=== PATIENT | male | born 1930 | race Caucasian/White ===

== ENCOUNTER → 2016-08-15 09:41 | Outpatient (CLI) | payer MEDICARE, BC ==
[~2016-08-15] VITALS: Ht 175.3 cm; Wt 72.7 kg
--- NOTE | ~2016-08-15 | HEMODYNAMI ---
PATIENT:MICHAEL SENA MEDICAL RECORD: [id number] : 28 LOCATION:[facility] ADMISSION DATE: 08/15/16 Generatedon:08/15/201612:47 Patient name: MICHAEL SNEA Patient #: [id number] SSN: [id number] : 1930 Date of study: 08/15/2016 Page: Of Hemodynamic Procedure Report Patient Data Patient Demographics Procedure consent was obtained First Name: MICHAEL Gender: Male Last Name: NATHEN : 1930 [facility] Initial: MORENA Age: 86 year(s) Patient #: [id number] Race: SSN: [id number] Additional ID: [id number] Contact details Address: [address] [place] [address] State: [place] City: [place] Zip code: [address] Past Medical History Allergies Allergen Reaction Date Comments Reported Other allergy 08/15/2016 Valium, Lisinopril, Amlodipine, Hydralazine Admission Admission Data Admission Date: 08/15/2016 Admission Time: 9:41 Arrival Date: 08/15/2016 Arrival Time: 11:30 Admit Source: Other Insurance Payor: Medicare Lab Results Lab Result Date: 08/15/2016 Lab Result Time: 0:00 Biochemistry Name Units Result Min Max BUN mg/dl 20 --(----)*- 7 18 Creatinine mg/dl 0.8 --(-*--)-- 0.6 1.3 CBC Name Units Result Min Max Hemoglobin g/dl 13 -*(----)-- 13.5 17.5 Procedure Procedure Types Cath Procedure Diagnostic Procedure [facility] w/Coronaries Procedure Description Procedure Date Procedure Date: 08/15/2016 Procedure Start Time: 12:30 Procedure Staff Name Function Karmen Lee RT Monitor Romel Roberts MD Performing Physician Gaviota Stock RN Nurse Catherine Crenshaw RT Scrub Indication Angina Procedure Data Cath Procedure Fluoroscopy Diagnostic fluoroscopy Total fluoroscopy Time: 2.9 time: 2.9 min min Diagnostic fluoroscopy Total fluoroscopy dose: dose: 235.31 mGy 235.31 mGy Contrast Material Contrast Material Type Amount (ml) Isovue 370 72 Entry Location Entry Primary Successful Side Size Upsize Upsize Entry Closure Luciano ccessful Closure Location (Fr) 1 (Fr) 2 (Fr) Remarks Device Remarks Radial Right 6 Fr Mechanical artery Short Compression Estimated blood loss: 5 ml Diagnostic catheters Device Type Used For End Catheter Placement Terumo 5Fr Ramy 110cm Multi-vessel catheter Angiography Cordis Infinity 5Fr AR 2 Right Coronary MOD catheter Angiography Procedure Complications No complications Procedure Medications Medication Administration Route Dosage Oxygen NC 2 l/min Heparin Flush Bag added to field 2 bags (1000units/500ml NS) Lidocaine 2% added to field 20 Benadryl I.V. 50 mg Radial Cocktail added to field 1 syringe (Verapomil 2mg/Nitro 400mcg/Heparin 1500units) Refer to Anesthesia Notes for Sedation Medications Hemodynamics Rest HGB: 13 (g/dl) Heart Rate: 71 (bpm) Pressure Samples Time Site Value (mmHg) Purpose Heart Use Rate(bpm) 12:32 LV 93/34,50 Snapshot 71 Snapshots Pre Cath Intra NCS Post Cath Vital Signs Time Heart Resp SPO2 NIBP (mmHg) Rhythm Pain Sedation Rate (ipm) (%) Status Level (bpm) 12:22:21 102 17 99 169/95(136) NSR 0 (11) 10(A) , No pain 12:26:36 68 25 92 135/81(108) NSR 0 (11) 10(A) , No pain 12:30:47 66 17 94 120/67(93) NSR 0 (11) 6(A) , No pain 12:34:59 65 22 93 100/49(79) NSR 0 (11) 6(A) , No pain 12:39:13 63 22 95 100/50(79) NSR 0 (11) 6(A) , No pain 12:44:06 66 22 96 113/53(87) NSR 0 (11) 9(A) , No pain Medications Time Medication Route Dose Verified Delivered Reason Notes Eff ectiveness by by 12:25:19 Oxygen NC 2 l/min Romel Stock RN physician 12:25:31 Heparin Flush added 2 bags Romel Urena used for Bag to Alejandra Roberts MD procedure (1000units/500ml field NS) 12:25:38 Lidocaine 2% added 20ml Romel Urena used for to vial Alejandra Roberts MD procedure field 12:25:44 Benadryl I.V. 50 mg Romel Haecca Per Alejandra Stock RN physician 12:26:06 Radial Cocktail added 1 Romel Romel used for (Verapomil to syringe Alejandra Roberts MD procedure 2mg/Nitro field 400mcg/Hepari 12:29:33 Refer to Romel Urena used for Anesthesia Notes Alejandra Roberts MD procedure for Sedation Medications Procedure Log Time Note 11:45:14 Gaviota Stock RN sent for patient. Start room use. 12:03:18 Informed consent obtained and on chart 12:03:22 Diagnostic Cath Status : Elective 12:04:10 Indication : Angina 12:04:24 Time tracking: Regular hours 12:04:29 Plan of Care:Hemodynamics will remain stable., Cardiac rhythm will remain stable., Comfort level will be maintained., Respiratory function will remain adequate., Patient/ family verbilizes understanding of procedure., Procedure tolerated without complication., Recovers from procedure without complications.. 12:04:34 Patient received from Outpatients to CCL 2 Alert and oriented. Tansferred to table in Supine position. 12:04:39 Warm blankets applied, and devyn hugger turned on for patient comfort. 12:04:40 Correct patient and procedure confirmed by team. 12:04:42 ECG and BP/O2 sat monitors applied to patient. 12:09:17 Dr. Turner present and monitoring patient for TIVA. 12:10:50 Lab Result : Hemoglobin 13 g/dl 12:10:50 Lab Result : Creatinine 0.8 mg/dl 12:10:50 Lab Result : BUN 20 mg/dl 12:21:07 Vital chart was started 12:21:08 Baseline sample Acquired. 12:21:45 Rhythm: paced 12:21:47 Full Disclosure recording started 12:21:55 H&P Date Dictated: 08/14/2016 Within 30 days and on chart., H&P Addendum completed by physician on day of procedure. (MUST COMPLETE FOR ALL OUTPATIENTS). 12:21:56 Pre-procedure instructions explained to patient. 12:21:57 Pre-op teaching completed and patient verbalized understanding. 12:21:58 Family in waiting room. 12:22:00 Patient NPO since Midnight. 12:22:47 Patient allergic to Other allergy Valium, Lisinopril, Amlodipine, Hydralazine 12:22:50 Is the patient allergic to Iodine/contrast media? No. 12:23:09 Is patient on blood thinner?Yes 12:23:12 ACC The patient was administered the following blood thiners within the last 24 hours: ACCPlavix 12:23:16 Patient diabetic? No. 12:23:19 Previous problem with sedation/anesthesia? No ? 12:23:21 Snore? Yes 12:23:41 Sleep apnea? No 12:23:43 Opens mouth fully? Yes 12:23:43 Deviated septum? No 12:23:44 Sticks out tongue? Yes 12:23:46 Airway obstruction? No ? 12:23:50 Dentures? No ? 12:23:52 Pre procedure: right dorsailis pedis pulse 1+ Palpable, but thready & weak; easily obliterated 12:23:58 Patient pain scale 0/10 ?. 12:24:00 Modified Truong's test Ulnar < 7 seconds 12:24:04 IV patent on arrival in left forearm with 0.9% NaCl at [facility]. 12:24:07 Lab results completed and on chart. 12:24:10 Right Radial & Right Groin area was prepped with chlora-prep and draped in sterile fashion 12:24:11 Sharps counted by scrub and verified by R.N. 12:24:11 Alarms reviewed by R. N. 12:25:19 Oxygen 2 l/min NC was given by Gaviota Stock RN; Per physician; 12:25:31 Heparin Flush Bag (1000units/500ml NS) 2 bags added to field was given by Romel Roberts MD; used for procedure; 12:25:38 Lidocaine 2% 20ml vial added to field was given by Romel Roberts MD; used for procedure; 12:25:44 Benadryl 50 mg I.V. was given by Gaviota Stock RN; Per physician; 12:26:06 Radial Cocktail (Verapomil 2mg/Nitro 400mcg/Heparin 1500units) 1 syringe added to field was given by Romel Roberts MD; used for procedure; 12::51 Physician arrived 12::52 --------ALL STOP TIME OUT------ 12::53 Final Timeout: patient, procedure, and site verified with staff and physician. All members of the team are in agreement. 12:28:58 Right Radial & Right Groin site verified by team. 12:29:01 Physical assessment completed. ASA score P 2 - A patient with mild systemic disease as per Romel Roberts MD. 12:29:04 Sedation plan: IV Moderate Sedation Versed, Fentanyl 12:29:33 Refer to Anesthesia Notes for Sedation Medications was given by Romel Roberts MD; used for procedure; 12:30:03 Procedure started. 12:30:11 Local anesthetic to right radial artery with Lidocaine 2% by Romel Roberts MD.INITIAL ACCESS ONLY 12:31:08 A 6 Fr Short sheath was inserted into the Right Radial artery 12:31:21 Use device set Radial Dx 12:31:23 Cardinal Cath Pack opened to sterile field. 12:31:23 Acist Syringe opened to sterile field. 12:31:24 St Trell 260cm J .035 wire opened to sterile field. 12:31:24 Terumo 6Fr Slender Glidesheath opened to sterile field. 12:31:24 Bag Decanter opened to sterile field. 12:31:25 Acist Manifold opened to sterile field. 12:31:25 Acist Hand Control opened to sterile field. 12:31:26 Tegaderm 4 x 4 opened to sterile field. 12:31:37 A Terumo 5Fr Ramy 110cm catheter was advanced over the wire and used for Multi-vessel Angiography. 12:32:55 LV hemodynamics recorded. 12:32:56 LV gram done using LOPEZ 12:32:58 Injector settings: Ml/sec: 5, Volume: 15, 12:33:04 EF : 40 % 12:33:10 LCA angiography performed. 12:33:35 Injector settings: Ml/sec: 3, Volume: 6, 12:34:56 Catheter removed. 12:35:26 A Closetbox Infinity 5Fr AR 2 MOD catheter was advanced over the wire and used for Right Coronary Angiography. 12:36:24 RCA angiography performed. 12:36:30 Injector settings: Ml/sec: 3, Volume: 6, 12:37:15 Catheter removed. 12:37:25 Terumo TR Band Standard opened to sterile field. 12:38:21 Sheath removed intact; hemostasis achieved with Mechanical Compression to the Right Radial artery. 12:38:23 Procedure ended.(Physican Out) 12:38:36 Fluoroscopy time 02.90 minutes. 12:38:55 Fluoroscopy dose: 235.31 mGy 12:38:55 Flurop Dose total: 235.31 12:39:19 Contrast amount:Isovue 370 72ml. 12:39:23 Sharps counted by scrub and verified by R.N. 12:39:33 TR band inflated with 10cc of air. 12:39:35 Insertion/operative site no bleeding no hematoma. 12:39:40 Post right radial artery:stable 12:39:42 Post Procedure Pulses reassessed and unchanged 12:39:44 Post procedure rhythm: unchanged. 12:39:47 Estimated blood loss: 5 ml 12:39:48 Patient needs reinforcement of post procedure teaching. 12:39:48 Post procedure instruction explained to patient.Patient verbalizes understanding. 12:39:55 Procedure and supply charges have been captured, reviewed, submitted and are correct. 12:39:59 Procedure Complication : No complications 12:40:06 Vital chart was stopped 12:40:07 See physician's report for complete and final results. 12:40:21 Report given to Post Procedure Room. 12:40:24 Patient transfered to Post Procedure Room with Stretcher. 12:40:54 Admit Source: Other 12:41:01 Arrival Date: 08/15/2016 11:30:00 AM 12:41:10 Insurance Payor : Medicare 12:45:44 Full Disclosure recording stopped 12:47:10 End room use (Document Last) Device Usage Item Name Manufacture Quantity Catalog Hospital Part Current Minimal Lot# / Number Charge Number Stock Stock Serial# Code Acist [facility] 1 [id number] 767029 139780 087672 20 Syringe [employer] Cardinal Cardinal 1 [id number] 360038 15274 950533 5 Cath Pack Health Bag Microtek 1 2001S 668130 69332 505213 5 [employer] Terumo 6Fr Terumo 1 [id number] 073643 960264 030947 [address] St Trell 1 441530 434730 791872 244198 30 260cm J .035 wire Acist Hand Acist 1 17790 062935 177793 080856 5 Control [employer] Inc Acist Acist 1 88423 717736 645394 775425 5 Manifold Medical [employer] Inc Tegaderm 4 3M 1 1626W 046422 564405 041369 5 x 4 Terumo 5Fr Terumo 1 92-7889 288496 300008 968990 5 Ramy 110cm catheter Cordis Cardinal 1 [id number] 674847 749219 873696 20 [employer] 5Fr AR 2 MOD catheter Terumo TR Terumo 1 [id number] 200289 697653 900169 40 Band Standard Signature Audit [place] Stage Time Signature Unsigned Intra-Procedure 08/15/2016 Karmen Lee RT(R) 12:45:36 PM RT(R) 08/15/2016 12:47:05 PM Intra-Procedure 08/15/2016 Karmen Lee 12:47:29 PM RT(R) Signatures Monitor : Karmen Lee RT Signature : Date : Time : [facility] [address] [place] [address]
[~2016-08-15 09:41] MED LIST: ASCORBIC ACID500 MG PO; BAYER CHEWABLE81 MG PO; CENTRUM COMPLE1 EACH PO; CRANBERRY 400 M1 TA1 PO; LEVOTHYROXINE75 MCG PO; MAGNESIUM OXID250 MG PO; NORMODYNE / TR100 MG PO; PLAVIX75 MG PO; PRAVACHOL20 MG PO; PRINIVIL20 MG PO; VITAMIN D31000 UNIT PO
[2016-08-15 10:35] LABS: BASOPHILS 0.3 % (0.0-2.0); EOSINOPHILS 1.7 % (0-7); HEMATOCRIT 38.8 % (42.0-54.0); LYMPHOCYTES 25.6 % (15-50); MCHC 33.5 g/dL (31.0-37.0); MCV 86.4 fL (80.0-100.0); MEAN PLATELET VOLUME 10.4 fL (7.4-10.4); MONOCYTES 7.9 % (2-11); NEUTROPHILS 64.5 % (40-80); PLATELET COUNT 180 10x3/uL (130-400); RBC 4.49 10x6/uL (4.20-6.10); RDW 12.3 % (11.5-14.5); WBC 6.4 10x3/uL (4.8-10.8)
[2016-08-15 10:42] VITALS: BP 136/79; Ht 175.3 cm; Wt 72.7 kg
[2016-08-15 10:48] LABS: CALC OSMOLALITY 269 mosm/kg (275-300); CALCIUM 8.7 mg/dL (8.5-10.1); CHLORIDE - SERUM 99 mmol/L (98-107); CREATININE - SERUM 0.8 mg/dL (0.6-1.3); GLUCOSE 117 mg/dL (74-106); POTASSIUM - SERUM 4.5 mmol/L (3.5-5.1); SODIUM 133 mmol/L (136-145); UREA NITROGEN 20 mg/dL (7-18); eGFR NON AFRICAN AMERICAN > 90 mL/min (90-120)
--- NOTE | 2016-08-15 13:08 | NUR ---
HR 66 BP 146/67 CHEST PAIN DENIED. 02 AT 2 LITERS NO DISTRESS NOTED. TR BAND TO R/WRIST CDI NO BLEEDING NO HEMATOMA NOTED. INSTRUCTED PATIENT TO KEEP RUE STRAIGHT NO BENDING OR FLEXING OF WRIST
--- NOTE | 2016-08-15 13:30 | NUR ---
RESPONDS TO VERBAL WITH CHEST PAIN DENIED. TR BAND REMAINS TO R/WRIST CDI NO BLEEDING NO HEMATOMA NOTED. VSS INSTRUCTED PATIENT TO KEEP RUE STRAIGHT NO BENDING OR FLEXING OF WRIST.
--- NOTE | 2016-08-15 14:00 | NUR ---
1400 REPOSITIONED TO SITTING WITH HOB UP 30 DEGREES CHEST PAIN DENIED WITH TR BAND TO R/WRIST CDI. TOLERATING ORAL FLUIDS WITH NAUSEA DENIED. VSS WILL MONITOR
--- NOTE | 2016-08-15 14:26 | NUR ---
2 CC AIR REMOVED FROM TR BAND WITH NO BLEEDING NOTED. SANDWICH AND SODA TO BEDSIDE FAMILY PRESENT
--- NOTE | 2016-08-15 14:47 | NUR ---
PIV REMOVED FROM LEFT HAND WITH DRESSING APPLIED. PATIENT UP TO GET DRESSED FOR DISCHARGE HOME FAMILY PRESENT
--- NOTE | 2016-08-15 14:58 | NUR ---
TR BAND REMOVED WITH NO BLEEDING NO HEMATOMA NOTED. DISCHARGE INSTRUCTIONS GONE OVER WITH PATIENT AND FAMILY TRANSPORTED VIA WC TO FRONT FOR FAMILY TO DRIVE HOME
--- NOTE | 2016-08-16 16:23 | OP ---
PATIENT NAME: MICHAEL SENA MEDICAL RECORD: [id number] :28 LOCATION:D.CAT ADMISSION DATE: SURGEON: PEDRO WOODSON MD DATE OF OPERATION: 08/15/2016 PROCEDURES: 1. Left heart catheterization. 2. Selective coronary angiography. 3. Left ventriculogram. PROCEDURE: After informed consent was obtained and after detailed explanation of risks, benefits as well as alternative therapies, the patient elected to proceed with angiogram and heart catheterization. The right radial area was prepped and draped in normal sterile fashion. The right radial artery was cannulated via modified Seldinger technique with placement of 5-Kiswahili sheath. All catheters exchanged through this sheath. FINDINGS: Left ventriculogram was performed in standard 30-degree LOPEZ view reveals global hypokinesis throughout all segments. Overall ejection fraction 40%. SELECTIVE CORONARY ANGIOGRAPHY: Left main, left anterior descending, left circumflex, and right coronary artery are all smooth-walled vessels with no angiographic evidence of coronary artery disease. OVERALL IMPRESSION: Nonischemic cardiomyopathy, ejection fraction 40%, but no evidence of coronary artery disease. Center medical management on treatment of the cardiomyopathy. TRANSINT:[id number] Voice Confirmation ID: [id number] DOCUMENT ID: [id number] PEDRO WOODSON MD at 1623 CC: [id number] DICTATION DATE: 08/15/16 1243 ESTIMATION MANAGER: 08/15/162101 DEP CLI 08/15/16 [place] [id number]
== END | disposition home or self-care (01) ==
LOC: D.CATH 09:41
PROVIDERS: Internal Medicine Interventional Cardiology
DX: I42.8 Other cardiomyopathies (principal)